=== PATIENT | female | born 1975 | race Caucasian/White ===

== ENCOUNTER → 2016-12-26 | Day surgery (SDC) | payer BC ==
[~2016-12-26] MED LIST: ATIVAN PO; ATORVASTATIN CA10 MG PO; B-121000 MC1 PO; BACTRIM DS TABL1 TA1 PO; CITALOPRAM HBR10 MG PO; DIFLUCAN PO; FISH OIL 1,0001 EAC1 PO; HYDROCHLOROTHIA25 MG PO; METOPROLOL SUCC50 MG PO; METRONIDAZOLE PO; MULTI VITAMIN1 EACH PO; MULTIPLE VITAMI1 T11 PO; NAPROXEN SODIU500 MG PO; NATURAL VITA100 UNIT PO; OMEPRAZOLE10 M1 PO; PHENERGAN PO; POTASSIUM1 UDCAP.SA PO; PYRIDIUM PO; SINGULAIR PO; TOPROL XL PO; ZYRTEC5 M4 PO
--- NOTE | ~2016-12-26 | OR ---
Unit #: [id number] #: [id number] Patient: FARZANEH HEATH [id number] [address] [place], [place] [address] [id number] MR#: [id number] NAME: FARZANEH HEATH ROOM: Date of Procedure: 12/26/2016 Admission Date: 12/26/2016 Surgeon: Khari Reinoso M.D. : 1975 Attending Physician: Khari Reinoso M.D. Referring Physician: Khari Reinoso M.D. Primary Care Physician: Amee Vallejo M.D. OPERATIVE REPORT PREOPERATIVE DIAGNOSES Chronic pain, right breast with abnormal ultrasound with enlarging thick walled cystic mass. POSTOPERATIVE DIAGNOSES Chronic pain, right breast with abnormal ultrasound with enlarging thick walled cystic mass. PROCEDURE PERFORMED Right breast excisional biopsy ANESTHESIA General endotracheal anesthesia. ESTIMATED BLOOD LOSS 20 mL. INDICATIONS FOR PROCEDURE A 41-year-old female, who has been having chronic pain in the right breast above the nipple-areolar complex. On radiologic evaluation, she had an area of thick walled clustered cyst that were enlarging and very irregular. DESCRIPTION OF PROCEDURE The patient was admitted to [facility], positively identified, and transported to the operating room, and after induction of general endotracheal anesthesia, she was prepped and draped in usual sterile fashion. There was a previous scar in the upper portion of the breast and this was excised with a wedge excision. The scar was wide and had some contracture. The scar was excised and headed to the specimen. Skin hooks were then used to elevate the skin and skin flaps were made circumferentially underneath the incision. I then palpated the margins of the area of abnormal tissues and using sharp and cautery dissection excised this area circumferentially with a cuff of normal tissue. I followed it down until we were well underneath the area of abnormal tissue. This was all excised. Once it was excised and sent to laboratory for permanent section, I irrigated and obtained hemostasis. Some of the deep space was closed with 2-0 Vicryl interrupted sutures. 30 mL of 0.5% Marcaine with epinephrine was infiltrated in the breast tissue for postop pain control. The skin was reapproximated with 4-0 Monocryl subcuticular interrupted sutures. Dermabond skin adhesive was used as an occlusive dressing. Sponges and needle counts were correct x3. The patient tolerated the procedure well and transported to recovery in stable Unit #: [id number] #: [id number] Patient: KUMAR,FARZANEH condition. Findings and postoperative instructions were discussed with her mother. Dictated by... Micha Crandall/mary TD: 12/26/2016 22:08 JOB #: [id number] OPERATIVE REPORT Page 1 of 1 X Khari Reinoso MD PROCEDURE OPERATIVE NOTE
== END | disposition home or self-care (01) ==
LOC: CSUR 05:36
DX: N60.01 Solitary cyst of right breast (principal); N60.41 Mammary duct ectasia of right breast; N60.81 Other benign mammary dysplasias of right breast; N60.21 Fibroadenosis of right breast; N64.4 Mastodynia; K21.9 Gastro-esophageal reflux disease without esophagitis; I10 Essential (primary) hypertension; E78.5 Hyperlipidemia, unspecified; Z80.3 Family history of malignant neoplasm of breast; Z82.49 Family history of ischemic heart disease and other diseases of the circulatory system; Z87.42 Personal history of other diseases of the female genital tract
CPT/HCPCS: 88307; J1100; J1885; J2405; J3010